=== PATIENT | female | born 1995 | race Caucasian/White ===

== ENCOUNTER 2020-11-24 11:37 | Emergency (ER) | payer OTHER ==
[~2020-11-24 11:37] MED LIST: BACTRIM DS TAB1 EACH PO; CORTIZONE-1057 GM TP; ELIMITE 5% CREA60 GM TOP; FLAGYL500 MG PO; MACROBID 100 M100 MG PO; ZOFRAN4 MG PO
[2020-11-24 13:01] LABS: BUN/CREATININE RATIO 12 (0-10)
[2020-11-24 13:02] LABS: HEMOGLOBIN 14.8 gm/dl (12.3-15.3); RED BLOOD COUNT 5.14 M/UL (4.00-5.10); WHITE BLOOD COUNT 13.9 K/UL (4.5-11.0)
== END 2020-11-24 16:02 | disposition home or self-care (01) ==
LOC: ER1 11:37
PROVIDERS: Nurse Practitioner
DX: R10.11 Right upper quadrant pain (principal); R10.12 Left upper quadrant pain; R31.9 Hematuria, unspecified; F17.290 Nicotine dependence, other tobacco product, uncomplicated; Z90.89 Acquired absence of other organs
CPT/HCPCS: 80053; 81001; 84702; 85025; 86900; 86901; 99284